=== PATIENT | female | born 1975 | race Hispanic/Latino ===

== ENCOUNTER 2016-09-17 12:53 | Emergency (ER) | payer OTHER ==
[~2016-09-17] VITALS: Ht 165.1 cm; Wt 72.7 kg
[~2016-09-17 12:53] MED LIST: NOMED
[2016-09-17 12:56] VITALS: BP 133/67; PULSE 92; RESP 14; O2SAT 100
--- NOTE | 2016-09-17 12:56 | ED.REPORT ---
HPI-Extremity Problem Upper Date of Service Sep 17, 2016 ED Provider: Dr. Rainey Pt is a 41 y/o female presenting to the ED due to distal right small finger injury prior to arrival. The pt was closing a pressurized door at work and smashed her right small finger accidentally. She c/o associated pain at the finger, mild numbness of the finger. She denies any other injuries. Bleeding is controlled at this point. Last T-Dap 2004. Nursing Notes Stated Complaint: LEFT HAND INJURY/L AND I Chief Complaint: Extremity Trauma Nursing Notes Reviewed: Yes Allergies: Uncoded Allergies: NKA (Allergy, Unknown, 03/01/05) NKDA (Allergy, Unknown, 03/01/05) No Known Allergies (Allergy, Unknown, 03/01/05) Scheduled Cephalexin (Keflex) 500 Mg Capsule 500 MG PO TID Scheduled PRN Ibuprofen (Ibuprofen) 600 Mg Tablet 600 MG PO QID PRN PRN For Pain oxyCODONE-Acetaminophen 5-325 mg (oxyCODONE-Acetaminophen 5-325 mg) 1 Each Tablet 1 TAB PO Q6H PRN PRN For Pain Miscellaneous Medications No Historical Medication (No Historical Medication) Ea General Time Seen by MD: 12:55 Chief Complaint Finger injury right 5 Hx Obtained From: Patient Arrived By: Walk-in Onset Occurred: Just prior to arrival Symptom Duration: Since onset Caused by: Accidental, Blunt injury Context: Occurred at: Workplace Location: : Finger right 5 Quality: Painful Severity: Current: Moderate Severity: Maximum: Moderate Exacerbated by: Range of motion Similar Sx Previous: No Past Medical History Past Medical History Denies Past Surgical History Tubal ligation Smoking History Unknown if Ever Smoker Social History Drug Use: Denies drug use Ambulatory Status Independent Review of Systems Musculoskeletal: Reports: Extremity pain Neurologic: Reports: Numbness Complete sys rev & neg: except as marked. Hematologic: Reports Bleeding Physical Exam Initial Vital Signs Vital Signs (First) Date Time Temp Pulse Resp B/P Pulse Ox O2 Delivery O2 Flow Rate FiO2 09/17/16 12:56 36.9 92 14 133/67 100 Room Air Initial VS: Reviewed Head / Eyes: Atraumatic, Normocephalic, PERRL ENT: Mucous membranes moist, Conjunctiva normal, No scleral icterus Neck: Full range of motion Respiratory: Breath sounds normal, Clear to auscultation, No respiratory distress Cardiovascular: Regular rate & rhythm, Heart sounds normal, Intact distal pulses Skin: Warm, Dry Neurologic: Alert, Oriented, Nonfocal Psychiatric: Mood/affect normal, Behavior normal, Normal thought content General/Constitutional: Awake, Alert, Cooperative, Not toxic appearing Appearance / Presentation: Positive: Uncomfortable, Negative: Intoxicated Wrist / Hand: Vascular intact, No compartment syndrome Right 5th finger: Tip of finger dusky with slowed capillary refill. No sensation over the medial aspect Some sensation over the lateral aspect. Laceration through the middle proximal phalanx. Interpretation & Diagnostics X-Ray Interpretation Xray Interpretation: FINDINGS: Bones: Moderately displaced fracture of the distal aspect of the middle phalanx of the 5th digit is present. There is roughly 7 mm of override, and moderate ulnar displacement. Soft tissues: No suspicious soft tissue calcifications. IMPRESSION: 5th digit fracture as above. Dictated by: Aamir Dupont M.D. on 09/17/2016 at 13:26 Approved by: Aamir Dupont M.D. on 09/17/2016 at 13:26 Study Performed: XR right fingers, 2 view X-Ray Ordered: Hand right Interpretation / Wet Read by: Interpret - Radiologist Procedures Laceration Management Laceration Management: Digital block performed at 1302. Open fracture, relocated and sutured After cleaning and warming, tip of finger has much better blood perfusion There is minimal crush component to the injury Time: 13:22 Procedure Performed by: ED physician Consent / Setup / Site Prep: Consent from patient, Time-out performed, Hand hygiene observed, Stand sterile technique Location of Wound: See physical exam Wound Length: 5 cm Local Anesthesia: Lidocaine 1% Digital Block: Yes Digit Involved: Little finger right Wound Preparation: Normal saline Debridement: None Irrigation: Copious Undermining / Margins: Flaps aligned Repair Skin: ___ O (4), Nylon # Sutures - Skin: 4 (2 mattress, 2 interrupted) Closure Layers: 1 Suture Technique: Mattress Post-Procedure / Complications: No complications, Condition improved, Tolerated procedure well, Patient stable Reduction Finger Open fracture reduction of right finger 5 Time: 13:22 Procedure Performed by: ED physician Consent / Setup / Site Prep: Consent from patient, Hand hygiene observed, Stand sterile technique Finger / Joint Involved: Right 5 Anesthetic Method / Agent: Lidocaine 1% Post-Procedure / Complications: Procedure successful, No complications, Tolerated procedure well, Patient stable Re-Eval/Medical Decision Med Decision/Clinical Course presents with partial finger amputation. decreased blood flood and no sensation to medial aspect of distal finger (lateral aspect OK). midlde phalynx completely transected. minimal crush component. after thorough cleaning (warm saline) much better perfusion to finger tip. bone edges reapproximated and, with sutured laceration, maintains reapproximation. Finger splint used with dressing for stabalization. Discussed with Dr Lim, agrees to see patient in clinic for continued care. Discussed very clearly concerns with this injury, risk for infection, risk for poor healing, and risk for additional intervention required, and risk of distal finger necrosis. Encouraged them to return to ED with ANY concerns. Consultation : Referral / Consult Name: Mark Casas MD Consulted With: Orthopedic Call Returned at: 14:31 Compensation Expert: Agrees with aracely, Agrees with plan Note: Discussed case. Happy to see her in clinic on Thursday. Counseled Regarding: Diagnosis, Need for follow-up, When/why to return to ED Discharge & Departure Impression: Primary Impression: Open fracture of phalanx of finger of right hand Additional Impressions: Work place accident Partial traumatic transphalangeal amputation of right little finger Encounter type: initial encounter Qualified Code: S68.626A - Partial traumatic transphalangeal amputation of right little finger, initial encounter Disposition: Home Discharge Condition All VS Reviewed: Yes Condition: Stable Patient Instructions: Finger Fracture (ED) Additional Instructions: You had a partial digit amputation of the right 5th finger with an associated open fracture. Please finish the entire course of prescribed antibiotics. These are prescribed as a prophylactic agent against an infection. Take pain medication as needed. You have an appointment scheduled to meet with orthopedic surgeon Dr. Fei Rodriguez at the [facility] clinic on Thursday09/22/16 at 09:30 AM. If you decide to remove the dressing in the mean time, you will need to replace it yourself. Return to the emergency department if you experience worsening finger numbness or weakness, uncontrolled pain, signs of infection (chills, fever, redness, swelling, discharge, or pain over the hand), or for other concerning signs or symptoms. Referrals: Diego Ordonez MD (PCP) Mark Casas MD Scribe Attestation Portions of this note were transcribed by Tate Velasco. I, Dr. Rainey personally performed the history, physical exam and medical decision-making; I reviewed and confirmed the accuracy of the information in the transcribed note. Signed by Karmen Allen, 09/17/16 - 1257 copies to: Fei Rodriguez MD; Mark Casas MD, Shawna L MD Sep 17, 2016 12:56 TATE VELASCO Sep 17, 2016 13:04
[2016-09-17] MEDS ORDERED: TdaP Vaccine 0.5 mL Inj IM ONE (13:10)
--- NOTE | 2016-09-17 13:28 | DRSVH ---
PROCEDURE: X-RAY FINGERS, TWO VIEWS INDICATIONS: right 5th finger contusion,lac TECHNIQUE: AP hand, 2 views of the right 5th finger(s) acquired. COMPARISON: None. FINDINGS: Bones: Moderately displaced fracture of the distal aspect of the middle phalanx of the 5th digit is p resent. There is roughly 7 mm of override, and moderate ulnar displacement. Soft tissues: No suspicious soft tissue calcifications. IMPRESSION: 5th digit fracture as above. Dictated by: Aamir Dupont M.D. on 09/17/2016 at 13:26 Approved by: Aamir Dupont M.D. on 09/17/2016 at 13:26
[2016-09-17] MEDS ORDERED: oxyCODONE-Acetamin 5-325 mg Tablet PO ONE (14:55)
[2016-09-17] MEDS ORDERED: OXYC1TAB24 PO (14:56)
[2016-09-17] MEDS ORDERED: IBUP-1827 PO (14:56)
[2016-09-17] MEDS ORDERED: CEPH-512 PO (15:02)
[2016-09-17 15:17] VITALS: BP 131/65; PULSE 82; RESP 16; O2SAT 100
[2016-09-23] MEDS ORDERED: HYDR-4003 PO (18:10)
[2016-09-23] MEDS ORDERED: SULF1TAB7 PO (18:10)
[2016-11-12] MEDS ORDERED: HYDR-4003 PO (11:25)
== END 2016-09-17 15:18 | disposition home or self-care (01) ==
LOC: SED 12:53
DX: S68.626A Partial traumatic transphalangeal amputation of right little finger, initial encounter (principal); S62.636A Displaced fracture of distal phalanx of right little finger, initial encounter for closed fracture; W23.0XXA Caught, crushed, jammed, or pinched between moving objects, initial encounter; Y92.59 Other trade areas as the place of occurrence of the external cause; Y93.89 Activity, other specified; Y99.0 Civilian activity done for income or pay; Z23 Encounter for immunization

== ENCOUNTER 2016-09-26 05:40 | Day surgery (SDC) | payer OTHER ==
[~2016-09-26] VITALS: Ht 175.3 cm; Wt 69.9 kg
[~2016-09-26 05:40] MED LIST changes: +CEPH-512 PO; +HYDR-4003 PO; +IBUP-1827 PO; -NOMED; +OXYC1TAB24 PO; +SULF1TAB7 PO
[2016-09-26] MEDS ORDERED: fentaNYL-PF 50 mCg/mL 2 mL Inj ONE (05:41)
[2016-09-26] MEDS ORDERED: Ondansetron 2 mg/mL 2 mL Inj ONE (05:41)
[2016-09-26] MEDS ORDERED: Propofol 10,000 mCg/mL 20 mL Inj ONE (05:41)
[2016-09-26] MEDS ORDERED: Dexamethasone 4 mg/mL Inj ONE (05:41)
[2016-09-26] MEDS: Lactated Ringer's 1,000 ML IV SCH ×3 (05:44→11:10)
[2016-09-26] MEDS ORDERED: CeFAZolin 2 Gm/50 mL D5W Duplex Bag IV ONE (05:49)
[2016-09-26 05:53] VITALS: BP 101/59; PULSE 49; RESP 15; O2SAT 100
[2016-09-26] MEDS ORDERED: CeFAZolin 2 Gm/50 mL D5W IV Premix IV ONE (06:00)
--- NOTE | 2016-09-26 07:17 | PCM.HPANE ---
Patient Data Surgeon Admitting Provider: Attending Provider:Fei Rodriguez MD Primary Care Physician:Emily Other Provider:Trenton Recinos Anesthesia Reason for Visit Right Little Finger Laceration Ht/WT & BMI Height (Feet): 5 Height (Inches): 9 Weight (Kilograms): 69.9 Body Mass Index 22.00 Allergies Uncoded Allergies: NKA (Allergy, Unknown, 03/01/05) Past Anesthesia History Anesthesia History: Denies:: Anesthesia Reactions, Malignant Hyperthermia Diabetes History Hx Diabetes?: No MRSA MRSA: No Medications Home Meds Incl Beta Lizet: No Active Scripts Cephalexin (Keflex)500 Mg [id number] Mg PO TID #30 CAPSULE Ref 0 Prov:Alison Rainey MD 09/17/16 oxyCODONE-Acetaminophen 5-325 mg 1 Each Tablet1 Tab PO Q6H PRN For Pain #14 TABLET Prov:Alison Rainey MD 09/17/16 Ibuprofen 600 Mg [id number] Mg PO QID PRN For Pain #30 TABLET Prov:Alison Rainey MD 09/17/16 Reported Medications Sulfamethoxazole/Trimeth 800-160 mg (Bactrim DS)1 Each Tablet1 Tablet PO BID Ref 0 09/23/16 Discontinued Reported Medications Hydrocodone-Acetaminophen 5-325 mg 1 Each Tablet1 Tablet PO Q6H PRN For Pain Ref 0 09/23/16 No Historical Medication Ea 03/16/08 History History of ENT Problems?: No Hx of Heart Problems?: No Cardiovascular History: Denies:: Congestive Heart Failure Heart Murmur Hypertension Valvular Heart Disease Hx of Respiratory Problem?: No Respiratory History: Denies:: Tuberculosis Use of C-PAP Machine (SNORES) Hx Neurologic Problems?: No Hx of GI Problems?: No Hx of Problems?: No Female Hx: Positive for:: Problems with Breasts? (HX FIBROCYSTIC BREAST DISEASE) Denies:: Currently (HX: HYSTERECTOMY) Endometriosis Pelvic Inflammatory Skin History: Denies:: History Skin Disorders? Pressure Ulcers Hx Musculoskeletal Problems?: Yes Musculoskeletal History: Positive for:: Musculoskeletal Trauma (RT LITTLE FINGER LACERATION(DIGITAL NREVE)/FX=CURRENT PROBLEM) Hx of Psycho/Social Problems?: No Hx Surgeries?: Yes (BTL,HYST/BSO) Hx Any Other Health Problems?: Yes Other History: Denies:: Cancer Endocrine Disease Hospitalization Thyroid Disease History Blood Transfusions: Denies:: Blood Transfusions Hx Diabetes: No Hx Substance Use: No Smoking Status: Unknown if Ever Smoker Have You Smoked inLast 12 mo: No Stop/Bang S-Snoring: Do You Snore Loudly: Yes T-Tired: feel tired, fatigued: No O-Obsered: Observed not breath: No P-Blood Pressure: treated: No B- Body Mass Index > 35 kg/m2: No A- Age over 50: No N- Neck Large Circumference: No G- Gender Male: No RODERICK Total Score: 1 RODERICK Risk Assessment: Low Risk, <3 Yes Risk Assessment Category Category 1A: Patient has history of documented sleep apnea, and HAS NOT received any narcotic, sedative or anesthesia administration during this stay. Category 1B: Patient has history of documented sleep apnea, and HAS received any narcotic , sedative or anesthesia administration during this stay Category 2: Patient has SUSPECTED Obstructive Sleep Apnea, and HAS received any narcotic , sedative or anesthesia administration during this stay. Category 3: Patient has SUSPECTED Obstructive Sleep Apnea and HAS NOT received narcotic, sedative or anesthesia administration during this stay. Category 4: Outpatient in Procedural Areas with known sleep apnea or who screen positive for High Risk via the STOP/BANG questionnaire. Exam Exam Vital Signs Vital Signs Date Time Temp Pulse Resp B/P Pulse Ox O2 Delivery O2 Flow Rate FiO2 09/26/16 05:53 36.2 49 15 101/59 100 Room Air General Appearance: Alert, Oriented X3, Cooperative, No Acute Distress HEENT/AIRWAY: MP 2 Lungs: Clear to Auscultation, Normal Air Movement Heart: Exam Unremarkable, Regular Rate/Rhythm, No Murmurs/Rubs/Gallops Meds/Labs/Diagnostics Admission Meds Current Medications Lactated Ringer's (Lr) 1,000 ml @ 120 mls/hr Q8H20M IV Last administered on t 05:44; Start 09/26/16 at 05:00; Stop 09/26/16 at 13:19 Plan Impression Patient chart reviewed, patient interviewed and anesthestic plan with risks, benefits, and alternatives discussed, and informed consent obtained. NPO Status: 2100 09/25/16 ASA Physical Status: ASA2 Mod Systemic Disease Anesthetic Plan: GA Bene/Risks/Altern/Consents: Yes HP Complete Prior to Induction: Yes Dago Alfaro MD Sep 26, 2016 07:17
[2016-09-26] MEDS ORDERED: HYDROmorphone 1 mg/mL Inj IVPUSH PRN (08:15)
[2016-09-26] MEDS ORDERED: Lactated Ringer's 1,000 ML IV SCH (08:15)
[2016-09-26] MEDS ORDERED: Phenylephrine 10,000 mCg/mL Inj IVPUSH PRN (08:15)
[2016-09-26] MEDS ORDERED: MetoCLOpramide 5 mg/mL 2 mL Inj IVPUSH PRN (08:15)
[2016-09-26] MEDS ORDERED: Lactated Ringer's 500 ML IV PRN (08:15)
[2016-09-26] MEDS ORDERED: Dexamethasone 4 mg/mL Inj IVPUSH PRN (08:15)
[2016-09-26] MEDS ORDERED: Ondansetron 2 mg/mL 2 mL Inj IVPUSH PRN (08:15)
[2016-09-26] MEDS ORDERED: hydrALAZINE 20 mg/mL Inj IVPUSH PRN (08:15)
[2016-09-26] MEDS ORDERED: Labetalol 5 mg/mL 4 mL Inj IV PRN (08:15)
[2016-09-26] MEDS ORDERED: EPHEDrine Sulfate 50 mg/mL Inj IVPUSH PRN (08:15)
[2016-09-26] MEDS ORDERED: Atropine 0.4 mg/mL Inj IVPUSH PRN (08:15)
[2016-09-26] MEDS ORDERED: Bupivacaine-MPF 0.5% 30 mL Inj INFILTRATE ONE (08:25)
[2016-09-26] MEDS ORDERED: Gentamicin 40 mg/mL 2 mL Inj IRRIGATION ONE (08:25)
[2016-09-26 10:28] VITALS: BP 98/53; PULSE 69; RESP 14; O2SAT 96
[2016-09-26 10:35] VITALS: BP 103/56; PULSE 66; RESP 16; O2SAT 95
[2016-09-26 10:45] VITALS: BP 104/60; PULSE 64; RESP 18; O2SAT 95
[2016-09-26] MEDS ORDERED: oxyCODONE-Acetamin 5-325 mg Tablet PO PRN (10:45)
[2016-09-26] MEDS: fentaNYL-PF 50 mCg/mL 2 mL Inj IVPUSH PRN ×2 (10:59→11:12)
[2016-09-26 11:13] VITALS: BP 106/64; PULSE 61; O2SAT 99
[2016-09-26 12:23] VITALS: BP 101/61; PULSE 78; RESP 16; O2SAT 97
--- NOTE | 2016-09-26 12:37 | PCM.ANEP1 ---
Post Anesthesia Phase 1 PACU Phase 1 Assessment Vital Signs Vital Signs Date Time Temp Pulse Resp B/P Pulse Ox O2 Delivery O2 Flow Rate FiO2 09/26/16 12:23 78 16 101/61 97 Room Air 09/26/16 11:13 61 106/64 99 Nasal Cannula 2 09/26/16 10:45 64 18 104/60 95 Room Air 09/26/16 10:35 66 16 103/56 95 Room Air 09/26/16 10:28 37.6 69 14 98/53 96 Room Air 09/26/16 05:53 36.2 49 15 101/59 100 Room Air Anesthetic Administered: GA Level of Alertness: Awake, talking LIVINGSTON's with Equal Strength: Yes Pain: No Nausea or Vomiting: No Oxygen Delivery: Room Air Lungs: Clear to Auscultation, Normal Air Movement Dermatome Level: Full Sensation Dago Alfaro MD Sep 26, 2016 12:37
--- NOTE | 2016-09-26 12:41 | PCM.ANEP2 ---
Post Anesthesia Evaluation ASA/CMS Post Anesthesia VS in Patient's Normal Range?: Yes Resp Stable; Airway Patent?: Yes CV Function & Hydration Stable: Yes Mental Status Recovered?: Yes Pain control Satisfactory?: Yes N/V Control Satisfactory?: Yes Dago Alfaro MD Sep 26, 2016 12:41
--- NOTE | 2016-09-26 15:49 | OP ---
[address] [address] OPERATIVE REPORT PATIENT: JUANITO HERRERA V : 1975 MR#: [id number] ADMIT: 09/26/2016 JOB ID: [id number] DATE OF SURGERY: 09/26/2016 PREOPERATIVE DIAGNOSIS(ES): 1. Prior open left little finger middle phalangeal displaced fracture. ICD 10 code is 62.626 B. 2. Possible ulnar digital nerve laceration, right little finger. POSTOPERATIVE DIAGNOSIS(ES): 1. Right little finger middle phalangeal previous open fracture. ICD 10 code is S 62.626 B. 2. Intact ulnar digital nerve right little finger with contusion and/or neurapraxia. T14.8 3. Right little finger extensor tendon laceration over the ulnar aspect of the extensor mechanism at the distal portion of the middle phalanx, zone II. ICD 10 code S 66.529 A. PROCEDURES: 1.Open reduction and internal fixation, right little finger middle phalangeal fracture and irrigation of open fracture. 81446 / 70915 2.Right little finger extensor tendon repair in zone II. CPT code 04641. SURGEON: Dr. Fei Rodriguez. WARP DRAWER: None. ANESTHESIA: General. Supplemental metacarpal nerve block performed postoperatively for postoperative analgesia. ESTIMATED BLOOD LOSS: Less than 5 mL. DRAINS: None. COMPLICATIONS: None. INDICATIONS: This is a 41-year-old female, who sustained a crush injury to her right little finger in a door at work. The wound was originally irrigated by the emergency department staff and loosely sutured. The fracture was noted to be unstable along the distal portion of the middle phalanx. The patient also had some weakness of finger extension and had some numbness over the ulnar aspect of the finger. She was taken to the operating room for irrigation exploration of the wound with stabilization of the fracture and repair of any structures amenable to repair. PROCEDURE IN DETAIL: Under adequate general anesthetic, a well-padded tourniquet was applied to the right upper extremity. Right arm was prepped and draped in a sterile fashion. After appropriate time-out was called. The right arm was elevated, exsanguinated, tourniquet inflated to 250 mmHg. Sutures were removed from the prior oblique laceration over the dorsal aspect of the finger extending to the ulnar aspect of the middle phalanx. The patient was found to have an unstable fracture of the distal portion of the middle phalanx. There was also a laceration along the radial dorsal slip of the extensor mechanism just proximal to the DIP joint. The ulnar aspect of the extensor mechanism at that level was intact. I did enlarge the incision proximally to evaluate the ulnar neurovascular bundle. The main ulnar digital nerve and artery were noted to be intact. The wound was thoroughly irrigated with antibiotic solution. After the wound was irrigated with the open fracture, clean gloves and clean instruments and clean drapes were utilized. A 0.35 K-wire was then directed from a distal ulnar to proximal radial direction across the fracture site. Fracture was still unstable. I opted to place a longitudinal K-wire distally down the distal phalanx across the DIP joint into the middle phalanx to provide additional stability and allow for stabilization and healing of the extensor tendon repair. Another 0.35 K-wire was placed and this stabilized the fracture. In order to provide additional stability to the fracture, a third 0.35 K-wire was directed across the fracture site in a crossed fashion. Both pins will need to remain in the finger for a moderate period of time and, therefore, I opted to cut them just below the skin and they will need surgical removal in the future. Attention was next turned to the extensor tendon over the radial aspect of the extensor mechanism. That portion was lacerated. Skin was repaired with a 4-0 FiberWire. The ulnar aspect of the extensor mechanism distal portion of the middle phalanx was intact. There was damage to the triangular ligament. There was no additional material amenable to repair due to the crush injury. The ulnar digital nerve was intact and did not require any surgery. Injury was consistent with a crush injury. Prior to release of the tourniquet, I performed a metacarpal nerve block with 0.5% plain Marcaine for postoperative analgesia. The wound was again irrigated with antibiotic solution. The tourniquet released. Minimal hemostasis required. Skin reapproximated with horizontal mattress sutures of 4-0 nylon. Xeroform dry sterile bulky dressing was applied and the patient was placed in a well-padded ulnar gutter fiberglass splint. She was taken to recovery room in stable condition. Sponge and needle count correct. PLAN: The patient will be seen back in the office in two weeks. We will have her arrange to see hand therapy for them to make her a protective finger splint to protect the PIP and DIP joints. The patient would like to return to work on Thursday. 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 CC: [facility] CC: Norberto Mujica
[2016-11-12] MEDS ORDERED: HYDR-4003 PO (11:25)
== END 2016-09-26 23:59 | disposition home or self-care (01) ==
LOC: SAS 05:40
PROVIDERS: ATTEND Orthopaedic Surgery
DX: S62.626B Displaced fracture of middle phalanx of right little finger, initial encounter for open fracture (principal); S67.196A Crushing injury of right little finger, initial encounter; W23.0XXA Caught, crushed, jammed, or pinched between moving objects, initial encounter; Y93.89 Activity, other specified; Y92.79 Other farm location as the place of occurrence of the external cause; Y99.0 Civilian activity done for income or pay
CPT/HCPCS: 26418; 26735; J0690; J1100; J1580; J2250; J2405; J7120

== ENCOUNTER 2016-11-14 08:08 | Day surgery (SDC) | payer OTHER ==
[~2016-11-14] VITALS: Ht 167.6 cm; Wt 69.1 kg
[~2016-11-14 08:08] MED LIST changes: -CEPH-512 PO; +CeFAZolin 2 Gm/50 mL D5W IV Premix IV ONE; -OXYC1TAB24 PO; -SULF1TAB7 PO
[2016-11-14] MEDS ORDERED: Propofol 10,000 mCg/mL 20 mL Inj ONE (08:09)
[2016-11-14] MEDS: Lactated Ringer's 1,000 ML IV SCH ×2 (08:14→10:32)
[2016-11-14] MEDS ORDERED: CeFAZolin Inj 2 gm / 50mL D5W IV ONE (08:30)
[2016-11-14 08:45] VITALS: BP 100/54; PULSE 54; RESP 18; O2SAT 99
--- NOTE | 2016-11-14 10:24 | PCM.HPANE ---
Patient Data Surgeon Admitting Provider: Attending Provider:Fei Rodriguez MD Primary Care Physician:Emily Other Provider:Trenton Recinos Anesthesia Reason for Visit Healing Right Little Finger Fracture Ht/WT & BMI Height (Feet): 5 Height (Inches): 6.00 Weight (Kilograms): 69.1 Body Mass Index 24.00 Allergies Coded Allergies: No Known Allergies (Verified Allergy, Unknown, 11/12/16) Past Anesthesia History Anesthesia History: Denies:: Anesthesia Reactions, Malignant Hyperthermia Diabetes History Hx Diabetes?: No MRSA MRSA: No Medications Home Meds Incl Beta Lizet: No Active Scripts Ibuprofen 600 Mg [id number] Mg PO QID PRN For Pain #30 TABLET Prov:Alison Rainey MD 09/17/16 Reported Medications Hydrocodone-Acetaminophen 5-325 mg 1 Each Tablet1 Tablet PO Q6H PRN For Pain Ref 0 11/12/16 Discontinued Reported Medications Sulfamethoxazole/Trimeth 800-160 mg (Bactrim DS)1 Each Tablet1 Tablet PO BID Ref 0 09/23/16 Discontinued Scripts Cephalexin (Keflex)500 Mg [id number] Mg PO TID #30 CAPSULE Ref 0 Prov:Alison Rainey MD 09/17/16 oxyCODONE-Acetaminophen 5-325 mg 1 Each Tablet1 Tab PO Q6H PRN For Pain #14 TABLET Prov:Alison Rainey MD 09/17/16 History History of ENT Problems?: No Hx of Heart Problems?: No Cardiovascular History: Denies:: Congestive Heart Failure Heart Murmur Hypertension Valvular Heart Disease Hx of Respiratory Problem?: Yes Respiratory History: Positive for:: Use of C-PAP Machine (SNORES) Denies:: Tuberculosis Hx Neurologic Problems?: No Hx of GI Problems?: No Hx of Problems?: No Female Hx: Positive for:: Problems with Breasts? (HX FIBROCYSTIC BREAST DISEASE) Denies:: Currently (TUBAL) Endometriosis Pelvic Inflammatory Skin History: Denies:: History Skin Disorders? Pressure Ulcers Hx Musculoskeletal Problems?: Yes Musculoskeletal History: Positive for:: Musculoskeletal Trauma (S/P ORIF RT LITTLE FINGER HEALING RT FINGER FX(K WIRES)=CURRENT PROB. ) Hx of Psycho/Social Problems?: No Hx Surgeries?: Yes (BTL,HYST/BILAT. SALPINGECTOMY) Hx Any Other Health Problems?: Yes Other History: Denies:: Cancer Endocrine Disease Hospitalization Thyroid Disease History Blood Transfusions: Denies:: Blood Transfusions Hx Diabetes: No Hx Substance Use: No Smoking Status: Unknown if Ever Smoker Have You Smoked inLast 12 mo: No Stop/Bang Treated for Sleep Apnea?: No Do You Have a CPAP Machine?: No S-Snoring: Do You Snore Loudly: Yes T-Tired: feel tired, fatigued: No O-Obsered: Observed not breath: No P-Blood Pressure: treated: No B- Body Mass Index > 35 kg/m2: No A- Age over 50: No N- Neck Large Circumference: No G- Gender Male: No RODERICK Total Score: 1 RODERICK Risk Assessment: Low Risk, <3 Yes Risk Assessment Category Category 1A: Patient has history of documented sleep apnea, and HAS NOT received any narcotic, sedative or anesthesia administration during this stay. Category 1B: Patient has history of documented sleep apnea, and HAS received any narcotic , sedative or anesthesia administration during this stay Category 2: Patient has SUSPECTED Obstructive Sleep Apnea, and HAS received any narcotic , sedative or anesthesia administration during this stay. Category 3: Patient has SUSPECTED Obstructive Sleep Apnea and HAS NOT received narcotic, sedative or anesthesia administration during this stay. Category 4: Outpatient in Procedural Areas with known sleep apnea or who screen positive for High Risk via the STOP/BANG questionnaire. Exam Exam Vital Signs Vital Signs Date Time Temp Pulse Resp B/P Pulse Ox O2 Delivery O2 Flow Rate FiO2 11/14/16 08:45 36.0 54 18 100/54 99 Room Air General Appearance: Oriented X3 HEENT/AIRWAY: MP 1 Lungs: Normal Air Movement Heart: Regular Rate/Rhythm Meds/Labs/Diagnostics Admission Meds Current Medications Lactated Ringer's (Lr) 1,000 ml @ 120 mls/hr Q8H20M IV Last administered on t 08:14; Start 11/14/16 at 05:00; Stop 11/14/16 at 13:19 Plan Impression Patient chart reviewed, patient interviewed and anesthestic plan with risks, benefits, and alternatives discussed, and informed consent obtained. NPO Status: TEA AT 0530 ASA Physical Status: ASA1 Normal Healthy Anesthetic Plan: MAC Bene/Risks/Altern/Consents: Yes HP Complete Prior to Induction: Yes Lamin Srivastava MD Nov 14, 2016 10:24
[2016-11-14] MEDS ORDERED: MetoCLOpramide 5 mg/mL 2 mL Inj IVPUSH PRN (10:25)
[2016-11-14] MEDS ORDERED: Phenylephrine 10,000 mCg/mL Inj IVPUSH PRN (10:25)
[2016-11-14] MEDS ORDERED: Lactated Ringer's 1,000 ML IV SCH (10:25)
[2016-11-14] MEDS ORDERED: HYDROmorphone 1 mg/mL Inj IVPUSH PRN (10:25)
[2016-11-14] MEDS ORDERED: Lactated Ringer's 500 ML IV PRN (10:25)
[2016-11-14] MEDS ORDERED: EPHEDrine Sulfate 50 mg/mL Inj IVPUSH PRN (10:25)
[2016-11-14] MEDS ORDERED: Ondansetron 2 mg/mL 2 mL Inj IVPUSH PRN (10:25)
[2016-11-14] MEDS ORDERED: fentaNYL-PF 50 mCg/mL 2 mL Inj IVPUSH PRN (10:25)
[2016-11-14] MEDS ORDERED: Dexamethasone 4 mg/mL Inj IVPUSH PRN (10:25)
[2016-11-14] MEDS ORDERED: Bupivacaine-MPF 0.5% 30 mL Inj INJ ONE (10:32)
[2016-11-14 11:35] VITALS: BP 92/43; PULSE 65; RESP 16; O2SAT 97
[2016-11-14 11:40] VITALS: BP 93/52; PULSE 61; RESP 16; O2SAT 97
[2016-11-14] MEDS ORDERED: oxyCODONE-Acetamin 5-325 mg Tablet PO PRN (11:50)
[2016-11-14 11:55] VITALS: BP 92/57; PULSE 62; RESP 14; O2SAT 99
--- NOTE | 2016-11-14 13:56 | PCM.ANEP1 ---
Post Anesthesia Phase 1 PACU Phase 1 Assessment Vital Signs Vital Signs Date Time Temp Pulse Resp B/P Pulse Ox O2 Delivery O2 Flow Rate FiO2 11/14/16 11:55 62 14 92/57 99 Room Air 11/14/16 11:40 61 16 93/52 97 Room Air 11/14/16 11:35 36.8 65 16 92/43 97 Room Air 11/14/16 08:45 36.0 54 18 100/54 99 Room Air Anesthetic Administered: GA Level of Alertness: Awake, talking Pain: No Nausea or Vomiting: No Oxygen Delivery: Room Air Lungs: Normal Air Movement Lamin Srivastava MD Nov 14, 2016 13:56
--- NOTE | 2016-11-14 13:56 | PCM.ANEP2 ---
Post Anesthesia Evaluation ASA/CMS Post Anesthesia VS in Patient's Normal Range?: Yes Resp Stable; Airway Patent?: Yes CV Function & Hydration Stable: Yes Mental Status Recovered?: Yes Pain control Satisfactory?: Yes N/V Control Satisfactory?: Yes Lamin Srivastava MD Nov 14, 2016 13:56
--- NOTE | 2016-11-14 14:20 | OP ---
[address] [address] OPERATIVE REPORT PATIENT: JUANITO HERRERA V : 1975 MR#: [id number] ADMIT: 11/14/2016 JOB ID: [id number] DATE OF SURGERY: 11/14/2016 PREOPERATIVE DIAGNOSIS(ES): 1. Healing right little finger middle phalangeal fracture, ICD-10 code S62.626D. 2. Right little finger stiffness, ICD-10 code M25.641. POSTOPERATIVE DIAGNOSIS(ES): 1. Healing right little finger middle phalangeal fracture, ICD-10 code S62.626D. 2. Right little finger stiffness, ICD-10 code M25.641. PROCEDURE: 1. Removal of retained K-wires, right little finger middle phalangeal fracture, CPT code 77296. K-wires were superficial. 2. Gentle manipulation, right little finger at the PIP joint, CPT code 68930. SURGEON: Fei Rodriguez MD. ASSISTING: None. ANESTHESIA: Metacarpal nerve block performed by surgeon, and IV analgesia by Anesthesiology. DRAINS: None. COMPLICATIONS: None. ESTIMATED BLOOD LOSS: Less than 2 mL. TOURNIQUET: Applied but not utilized. SPONGE AND NEEDLE COUNT: Correct. INDICATIONS: This is a 41-year-old female, who sustained a crush injury to her right little finger at work with a middle phalangeal fracture, open laceration, extensor tendon injury at the distal portion of the middle phalanx along with the fracture. She also had a crush injury to the ulnar digital nerve to the little finger but that nerve was noted to be intact at the time of surgical exploration. The finger has been splinted to protect the fracture due to the comminution of the fracture and instability, along with associated tendon injury and repair at such a distal level of the middle phalanx. The DIP joint had been K-wired as well to stabilize the fracture. PROCEDURE IN DETAIL: Under adequate IV sedation, I prepped the right hand and performed a metacarpal nerve block with 0.5% plain Marcaine. This was done after appropriate time-out was called. A well-padded tourniquet was applied to the right forearm, and the right arm was prepped and draped in a sterile fashion. The K-wires were very superficial, and I opted not to inflate the tourniquet. One of the K-wires had just come through the skin at the tip of the finger, and this was easily removed without requiring an incision. After the longitudinal K-wire across the DIP joint was removed, image intensification pictures were taken. I gently manipulated the MCP joint, and that was easily able to be maneuvered past 90 degrees. I then applied gentle passive stretch to the proximal portion of the middle phalanx at the PIP joint. I was able to maneuver the PIP joint and the tip of the little finger to the mid palmar crease without stressing the distal portion of the middle phalanx where the fracture was located. After I did that gentle manipulation and checked with image intensification, then I also removed the other two superficial K-wires that were transfixing the middle phalangeal fracture. I did not try to manipulate the DIP joint, as she still has an extensor tendon that is healing and that will supply too much stress over the fracture site at the distal portion of the middle phalanx. X-rays were taken with the mini C-arm and sent to Radiology. I did not utilize the tourniquet. The K-wire removal at the tip of the finger did not require a suture. The single small incision over the distal ulnar aspect of the little finger over the K-wires of the middle phalanx was repaired with just one single horizontal mattress suture of 4-0 nylon. Xeroform dry sterile dressings were applied. The patient was taken to recovery room in stable condition. Sponge and needle count correct. No complications. PLAN: The patient may return to work doing light duty. She will be rescheduled with Hand Therapy at [facility] here in [place] to begin range of motion to the finger. I anticipate the patient will have some residual stiffness in that finger, particularly at the DIP joint and some at the PIP joint due to the crush nature and the injury. Hand Therapy will make her a finger splint to allow motion at the PIP joint but perhaps still protect the DIP joint and then allow some early motion at the DIP joint as well. new splints made as needed. She will be seen back in the office in two weeks for suture removal. May see one of the PAs at that time and then, I will see her in followup two weeks thereafter. She needs to continue diligently with hand therapy to obtain and maintain range of motion to the finger. I have given her a note that she may return to light duty. CC: [facility] CC: Norberto Mujica
== END 2016-11-14 23:59 | disposition home or self-care (01) ==
LOC: SAS 08:08
PROVIDERS: ATTEND Orthopaedic Surgery
DX: S62.626A Displaced fracture of middle phalanx of right little finger, initial encounter for closed fracture (principal); M25.641 Stiffness of right hand, not elsewhere classified; X58.XXXA Exposure to other specified factors, initial encounter; Y93.9 Activity, unspecified; Y92.9 Unspecified place or not applicable; Y99.0 Civilian activity done for income or pay
CPT/HCPCS: 26340; J0690; J7120